=== PATIENT | male | born 1995 | race Caucasian/White ===

== ENCOUNTER 2018-06-02 08:34 | Emergency (ER) | payer OTHER ==
[2018-06-02 08:58] LABS: INR-International Normal Ratio 1.1; Mean Corpuscular HGB CONC 35.2 g/dL (32.0-36.0); Mean Corpuscular Hemoglobin 31.1 pg (27.0-31.0); Mean Corpuscular Volume 88.3 fL (78.0-98.0); Mean Platelet Volume 8.9 fL (7.4-10.4); Platelet Count 326 thou/uL (130-400); Prothrombin Time 13.8 SEC (12.0-14.7); RBC Distribution Width 11.5 % (11.5-14.5); Red Blood Cell (RBC) Count 4.83 mill/uL (4.70-6.10); White Blood Cell (WBC) Count 9.3 thou/uL (4.8-10.8)
[2018-06-02] MEDS ORDERED: Lidocaine 1% w/Epinephrine 1:100K 20 ML VIAL ONE (09:06)
[2018-06-02] MEDS ORDERED: Ondansetron PF 4 MG/2 ML Vial ONE ×2 (09:10→09:38)
[2018-06-02] MEDS ORDERED: Morphine 4 MG/ML VIAL ONE (09:10)
[2018-06-02 09:19] LABS: Band 1 % (5-11); Lymphocytes 42 % (21-51); MDiff Complete? YES; Monocytes 3 % (0-10); Neutrophil 36 % (42-75); PLT Morphology Comment Appears Adequate; RBC Morphology Normal; Reactive Lymphocytes 18 % (0-10)
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
[2018-06-02] MEDS ORDERED: Promethazine HCl 25 MG/ML VIAL ONE (09:51)
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
[2018-06-02 10:02] LABS: Albumin 3.9 g/dL (3.5-5.0)
[2018-06-02 10:04] LABS: Chloride 104 mmol/L (98-107); Potassium 3.7 mmol/L (3.5-5.1); Sodium 136 mmol/L (136-145)
[2018-06-02 10:05] LABS: Globulin 2.6 g/dL (2.4-3.5); Glucose 90 mg/dL (70-105); Protein, Total 6.5 g/dL (6.0-8.3)
[2018-06-02 10:06] LABS: Anion Gap 11 mmol/L (10-20); Carbon Dioxide 25 mmol/L (22-29)
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
[2018-06-02 10:07] LABS: Bilirubin, Total 0.5 mg/dL (0.2-1.2)
[2018-06-02 10:08] LABS: Alkaline Phosphatase 65 U/L (40-150); Calc. Creatinine Clearance 0 mL/min (70-130); Estimated GFR-MDRD 77
[2018-06-02 10:09] LABS: BUN (Urea Nitrogen) 21 mg/dL (8.9-20.6)
[2018-06-02 10:10] LABS: AST (SGOT) 32 U/L (5-34)
[2018-06-02 10:11] LABS: ALT (SGPT) 58 U/L (8-55)
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
[2018-06-02] MEDS ORDERED: Bacitracin Zinc 1 Packet ONE (10:46)
[2018-06-02] MEDS ORDERED: Ketorolac Tromethamine 30 MG/ML VIAL ONE (11:33)
[2018-06-02] MEDS ORDERED: Adacel (T-DAP) 0.5 ML SYRINGE ONE (11:33)
== END 2018-06-02 12:14 | disposition home or self-care (01) ==
LOC: ERS 08:34
DX: S12.501A Unspecified nondisplaced fracture of sixth cervical vertebra, initial encounter for closed fracture (principal); S01.81XA Laceration without foreign body of other part of head, initial encounter; F17.210 Nicotine dependence, cigarettes, uncomplicated; V49.9XXA Car occupant (driver) (passenger) injured in unspecified traffic accident, initial encounter
CPT/HCPCS: 12014; 36415; 70450; 70486; 70498; 71045; 72125; 80053; 85025; 85610; 85730; 90471; 90715; 96361; 96365; 96366; 96375; G0390; J1885; J2001; J2270; J2405; J2550

== ENCOUNTER 2018-06-02 17:20 | Emergency (ER) | payer SELFPAY | END 2018-06-02 19:04 | disposition home or self-care (01) | LOC: ERS 17:20 | DX: Z03.89 Encounter for observation for other suspected diseases and conditions ruled out (principal); F17.210 Nicotine dependence, cigarettes, uncomplicated | CPT/HCPCS: 99283 ==

== ENCOUNTER 2018-07-10 08:39 | Outpatient (CLI) | payer OTHER ==
--- NOTE | 2018-07-10 10:43 | CT ---
CT ANGIOGRAM NECK WITH 3D RENDERING: HISTORY: Followup of left vertebral dissection, posttraumatic headache. COMPARISON: 06/02/[address] scan and CTA neck. FINDINGS: Again noted is a somewhat transverse fracture through the left C6 foramen transversarium fracture. T he previously noted small pseudoaneurysm at this level has resolved. The entire left vertebral arter y is somewhat smaller in caliber than the right, evidence for a dominant right vertebral artery. No evidence for significant focal lumen diameter narrowing. IMPRESSION: Left C6 fracture of the foramen transversarium. The previously noted small focal pseudoaneurysm has resolved. Generalized diffuse narrowing of the left vertebral artery compared to the right, evidence for a dominant right vertebral artery. No significant new process. This was reviewed with Dr. Hodges, who is in agreement. POS: [facility]
== END 2018-07-10 08:40 | disposition home or self-care (01) ==
LOC: SCSCT 08:39
PROVIDERS: ATTEND Family Medicine
DX: S12.591D Other nondisplaced fracture of sixth cervical vertebra, subsequent encounter for fracture with routine healing (principal); S01.82XD Laceration with foreign body of other part of head, subsequent encounter; S80.01XD Contusion of right knee, subsequent encounter; S15.19 Other specified injury of vertebral artery; G44.309 Post-traumatic headache, unspecified, not intractable; M25.461 Effusion, right knee; I65.02 Occlusion and stenosis of left vertebral artery
CPT/HCPCS: 70498

== ENCOUNTER 2018-11-22 07:54 | Outpatient (CLI) | payer OTHER ==
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
== END 2018-11-22 07:55 | disposition home or self-care (01) ==
LOC: SCSMRI 07:54
PROVIDERS: ATTEND Family Medicine
DX: G44.309 Post-traumatic headache, unspecified, not intractable (principal); S80.01XD Contusion of right knee, subsequent encounter; S15.19 Other specified injury of vertebral artery; S01.82XD Laceration with foreign body of other part of head, subsequent encounter; S12.591D Other nondisplaced fracture of sixth cervical vertebra, subsequent encounter for fracture with routine healing; J34.1 Cyst and mucocele of nose and nasal sinus
CPT/HCPCS: 70551